=== PATIENT | male | born 1965 | race Caucasian/White ===

== ENCOUNTER 2016-12-08 11:29 | Emergency (ER) | payer MEDICAID ==
[~2016-12-08] VITALS: Ht 180.3 cm; Wt 131.5 kg
[2016-12-08 11:34] VITALS: BP_SYST 134
[2016-12-08] MEDS ORDERED: KETOROLAC TROMETHAMINE 60 MG/2 ML VIAL IM ONE (13:00)
[2016-12-08 13:41] VITALS: BP_SYST 128
== END 2016-12-08 13:41 | disposition home or self-care (01) ==
LOC: SED 11:29
DX: L03.113 Cellulitis of right upper limb (principal); M25.531 Pain in right wrist
CPT/HCPCS: 29125; 73110; 96372; 99284; J1885

== ENCOUNTER 2018-05-05 10:40 | Emergency (ER) | payer MEDICAID ==
[~2018-05-05] VITALS: Ht 180.3 cm; Wt 138.3 kg
[2018-05-05 10:55] VITALS: BP_SYST 160
--- NOTE | 2018-05-05 11:30 | NUR ---
Pt placed in bed 5
--- NOTE | 2018-05-05 11:35 | NUR ---
Pt brought by self, A&Ox4, pt presents to ER with L ankle pain, states unknown mechanism of injury, skin pink and warm, cap refill <3,pedal pulses equal and strong, VS WNL.
--- NOTE | 2018-05-05 11:43 | NUR ---
ER at bedside examining patient.
[2018-05-05] MEDS ORDERED: KETOROLAC TROMETHAMINE 60 MG/2 ML VIAL IM ONE (12:00)
--- NOTE | 2018-05-05 12:01 | NUR ---
X ray is at bedside.
--- NOTE | 2018-05-05 12:05 | NUR ---
Pain medication was given to pt. Tolerated well
[2018-05-05 13:21] VITALS: BP_SYST 148
--- NOTE | 2018-05-05 13:21 | NUR ---
Patient given written and verbal discharge instructions and verbalizes understanding. ER MD discussed with patient the results and treatment provided. Patient in stable condition. ID arm band removed. Rx of Tylenol and Motrin given. Patient educated on pain management and to follow up with PMD. Pain Scale 5/10 tolerable for patient. Opportunity for questions provided and answered. Medication side effect fact sheet provided.
== END 2018-05-05 13:21 | disposition home or self-care (01) ==
LOC: SED 10:40
DX: S82.302A Unspecified fracture of lower end of left tibia, initial encounter for closed fracture (principal); X58.XXXA Exposure to other specified factors, initial encounter; Y93.29 Activity, other involving ice and snow; Y92.89 Other specified places as the place of occurrence of the external cause; Y99.8 Other external cause status
CPT/HCPCS: 29515; 73610; 96372; 99283; J1885

== ENCOUNTER → 2018-12-02 | Emergency (ER) | payer MEDICAID ==
[~2018-12-02] VITALS: Ht 180.3 cm; Wt 131.5 kg
[~2018-12-02] MED LIST: KETOROLAC TROMETHAMINE 60 MG/2 ML VIAL IM ONE
[2018-12-02 08:15] VITALS: BP_SYST 137
[2018-12-02 09:45] VITALS: BP_SYST 137
== END | disposition still patient (30) ==
LOC: SED 08:15
DX: S43.402A Unspecified sprain of left shoulder joint, initial encounter (principal); I10 Essential (primary) hypertension; X50.0XXA Overexertion from strenuous movement or load, initial encounter; Y93.89 Activity, other specified; Y92.89 Other specified places as the place of occurrence of the external cause; Y99.8 Other external cause status
CPT/HCPCS: 73030; 96372; 99283; J1885

== ENCOUNTER 2018-12-31 09:39 | Emergency (ER) | payer MEDICAID ==
[~2018-12-31] VITALS: Ht 180.3 cm; Wt 137.0 kg
[2018-12-31 10:41] VITALS: BP_SYST 120
--- NOTE | 2018-12-31 11:22 | NUR ---
Patient to ER bed H1 to gown for evaluation. Side rails up.
--- NOTE | 2018-12-31 11:30 | NUR ---
Pt brought by self , A&Ox4, pt presents to ER with R wrist pain after he was lifting a heavy object , skin pink and warm, cap refill <3, VSS.
--- NOTE | 2018-12-31 11:45 | NUR ---
Dr Serrato at bedside examining patient
[2018-12-31] MEDS ORDERED: KETOROLAC TROMETHAMINE 60 MG/2 ML VIAL IM ONE (12:15)
[2018-12-31 12:43] VITALS: BP_SYST 118
--- NOTE | 2018-12-31 12:44 | NUR ---
Patient given written and verbal discharge instructions and verbalizes understanding. ER MD discussed with patient the results and treatment provided. Patient in stable condition. ID arm band removed. Rx of Tramadol and Motrin given. Patient educated on pain management and to follow up with PMD. Pain Scale 3 /10 tolerable for patient. Opportunity for questions provided and answered. Medication side effect fact sheet provided.
== END 2018-12-31 12:44 | disposition home or self-care (01) ==
LOC: SED 09:39
DX: M77.8 Other enthesopathies, not elsewhere classified (principal); I10 Essential (primary) hypertension
CPT/HCPCS: 29125; 73110; 96372; 99283; J1885

== ENCOUNTER 2019-01-25 09:56 | Emergency (ER) | payer MEDICAID ==
[~2019-01-25] VITALS: Ht 180.3 cm; Wt 135.2 kg
[2019-01-25 10:07] VITALS: BP_SYST 117
[2019-01-25] MEDS ORDERED: KETOROLAC TROMETHAMINE 60 MG/2 ML VIAL IM ONE (12:15)
[2019-01-25 12:54] VITALS: BP_SYST 117
== END 2019-01-25 12:54 | disposition home or self-care (01) ==
LOC: SED 09:56
DX: M25.531 Pain in right wrist (principal); I10 Essential (primary) hypertension; W01.0XXA Fall on same level from slipping, tripping and stumbling without subsequent striking against object, initial encounter; Y93.89 Activity, other specified; Y92.89 Other specified places as the place of occurrence of the external cause; Y99.8 Other external cause status
CPT/HCPCS: 29125; 73110; 73200; 96372; 99284; J1885

== ENCOUNTER 2019-05-06 12:22 | Emergency (ER) | payer MEDICAID ==
[~2019-05-06] VITALS: Ht 180.3 cm; Wt 131.5 kg
[2019-05-06 12:25] VITALS: BP_SYST 145
--- NOTE | 2019-05-06 12:30 | NUR ---
Patient triaged and placed in waiting room. VSS and patient appears in no acute distress at this time. Accompanied by SELF, awaiting available bed, and MD notified of need for MSE.
--- NOTE | 2019-05-06 14:20 | NUR ---
BROUGHT BACK TO BED #6 VIA WHEELCHAIR. REPORT GIVEN TO AROLDO
--- NOTE | 2019-05-06 15:15 | NUR ---
DR NASH AT BEDSIDE FOR EVALUATION
[2019-05-06] MEDS ORDERED: KETOROLAC TROMETHAMINE 60 MG/2 ML VIAL IM ONE (15:30)
[2019-05-06 16:19] VITALS: BP_SYST 141
--- NOTE | 2019-05-06 16:20 | NUR ---
Patient given written and verbal discharge instructions and verbalizes understanding. ER MD discussed with patient the results and treatment provided. Patient in stable condition. ID arm band removed. Rx of NORCO, MOTRIN given. Patient educated on pain management and to follow up with PMD. Pain Scale 0/10. Opportunity for questions provided and answered. Medication side effect fact sheet provided.
== END 2019-05-06 16:20 | disposition home or self-care (01) ==
LOC: SED 12:22
DX: M25.561 Pain in right knee (principal); I10 Essential (primary) hypertension
CPT/HCPCS: 73564; 96372; 99283; J1885

== ENCOUNTER 2019-05-16 09:14 | Emergency (ER) | payer MEDICAID ==
[~2019-05-16] VITALS: Ht 180.3 cm; Wt 131.1 kg
[2019-05-16 09:25] VITALS: BP_SYST 168
--- NOTE | 2019-05-16 09:27 | NUR ---
Patient to ER bed 06 to gown for evaluation. Side rails up.
--- NOTE | 2019-05-16 09:36 | NUR ---
PATIENT PRESENTS TO THE ER WITH HX OF BILATERAL INFERIOR KNEE PAIN FOR TWO WEEKS; NO TRAUMA, NO OTHER REMARKABLE S/S; PATIENT STATES HE STANDS FOR LONG HOURS; PATIENT TO ER #6 AT 0930; ERMD EVALUATION PENDING
--- NOTE | 2019-05-16 10:15 | NUR ---
Dr Caal at bedside examining patient
[2019-05-16] MEDS: KETOROLAC TROMETHAMINE 60 MG/2 ML VIAL IM ONE (10:27)
[2019-05-16 10:40] VITALS: BP_SYST 148
--- NOTE | 2019-05-16 10:40 | NUR ---
Patient given written and verbal discharge instructions and verbalizes understanding. ER MD discussed with patient the results and treatment provided. Patient in stable condition. ID arm band removed. Rx of Naproxen and [place] given. Patient educated on pain management and to follow up with PMD. Pain Scale 3/10 tolerable for patient . Opportunity for questions provided and answered. Medication side effect fact sheet provided.
--- NOTE | 2019-05-16 13:58 | NUR ---
Note [email or web address] in EDM - 05/16/19 at 1359 by [email or web address] Patient given written and verbal discharge instructions and verbalizes understanding. ER discussed with patient the results and treatment provided. Patient in stable condition. ID arm band removed. Rx of Naproxen and Lucas given. Patient educated on pain management and to follow up with PMD. Pain Scale 3/10 tolerable for patient . Opportunity for questions provided and answered. Medication side effect fact sheet provided.
== END 2019-05-16 10:40 | disposition home or self-care (01) ==
LOC: SED 09:14
DX: M19.90 Unspecified osteoarthritis, unspecified site (principal); I10 Essential (primary) hypertension; I83.90 Asymptomatic varicose veins of unspecified lower extremity
CPT/HCPCS: 96372; 99283; J1885

== ENCOUNTER 2022-05-18 11:17 | Emergency (ER) | payer MEDICAID ==
[~2022-05-18] VITALS: Ht 180.3 cm; Wt 131.5 kg
[2022-05-18 11:36] VITALS: BP_SYST 168
[2022-05-18 12:24] LABS: BASOPHILS # (AUTO) 0.1 K/uL (0.0-0.2); BASOPHILS % (AUTO) 0.7 % (0.0-2.0); EOSINOPHILS # (AUTO) 0.2 K/uL (0.0-0.4); EOSINOPHILS % (AUTO) 2.7 % (0.0-4.0); HEMATOCRIT 44.3 % (36-54); HEMOGLOBIN 15.1 g/dL (14.0-18.0); LYMPHOCYTES # (AUTO) 1.1 K/uL (1.0-5.5); LYMPHOCYTES % (AUTO) 15.2 % (20.5-51.5); MEAN CORPUSCULAR HEMOGLOBIN 32 pg (27-31); MEAN CORPUSCULAR HGB CONC 34 % (32-36); MEAN CORPUSCULAR VOLUME 95 fL (79.0-98.0); MONOCYTES # (AUTO) 0.6 K/uL (0.0-1.0); MONOCYTES % (AUTO) 7.6 % (1.7-9.3); NEUTROPHILS # (AUTO) 5.5 K/uL (1.8-7.7); NEUTROPHILS % (AUTO) 73.8 % (40.0-70.0); PLATELET COUNT (AUTO) 216 K/uL (130-430); RED BLOOD CELL COUNT(AUTO) 4.68 MIL/uL (4.2-6.2); RED CELL DISTRIBUTION WIDTH 12.8 % (9.0-15.0); WHITE BLOOD COUNT (AUTO) 7.4 K/uL (4.8-10.8)
--- NOTE | 2022-05-18 12:30 | NUR ---
ER at bedside examining patient.
[2022-05-18 12:39] LABS: PROTHROMBIN TIME 10.5 SECS (9.5-12.5)
[2022-05-18 12:47] LABS: CREATININE 0.96 mg/dL (0.55-1.30)
[2022-05-18 12:52] LABS: ALBUMIN 3.4 g/dL (3.4-4.8); C-REACTIVE PROTEIN QUANT 2.4 mg/dL (0-0.5); TOTAL BILIRUBIN 0.8 mg/dL (0.0-1.0)
[2022-05-18] MEDS ORDERED: HYDR-3927 PO (13:59)
[2022-05-18] MEDS ORDERED: MORPHINE 4 MG INJ. 4 MG/ML VIAL IM ONE (14:00)
--- NOTE | 2022-05-18 14:27 | NUR ---
bacitracin applied to pt wound and sores on distal left leg. gauze roll applied over the bacitracin. cobain was applied over the gauze roll to provide pressure. pms unchanged after wound care.
--- NOTE | 2022-05-18 18:30 | NUR ---
Patient given written and verbal discharge instructions and verbalizes understanding. ER MD discussed with patient the results and treatment provided. Patient in stable condition. ID arm band removed.
== END 2022-05-18 17:00 | disposition home or self-care (01) ==
LOC: SED 11:17
DX: I83.892 Varicose veins of left lower extremity with other complications (principal); I10 Essential (primary) hypertension; Z79.899 Other long term (current) drug therapy
CPT/HCPCS: 99283; 80053; 85025; 85610; 85730; 86140; 36415; 83605; J2270